=== PATIENT | female | born 1980 | race Caucasian/White ===

== ENCOUNTER 2018-09-23 17:43 | Observation (INO) | payer OTHER ==
[2018-09-23] MEDS ORDERED: ONDANSETRON ODT 4 MG TABLET TL STA (19:47)
[2018-09-23 20:05] LABS: BASOPHILS # (AUTO) 0.1 10^3/uL (0.0-0.1); BASOPHILS % (AUTO) 0.7 %; EOSINOPHILS # (AUTO) 0.1 10^3/uL (0.0-0.7); EOSINOPHILS % (AUTO) 0.8 %; HGB - HEMOGLOBIN 14.9 g/dL (12.0-16.0); LYMPHOCYTES # (AUTO) 2.2 10^3/uL (1.5-3.5); LYMPHOCYTES % (AUTO) 27.7 %; MEAN CORPUSCULAR HEMOGLOBIN 30.7 pg (27.0-31.0); MEAN CORPUSCULAR HGB CONC 32.9 g/dL (32.0-36.0); MEAN CORPUSCULAR VOLUME 93.5 fL (81.0-99.0); MEAN PLATELET VOLUME 7.4 fL (7.9-10.8); MONOCYTES # (AUTO) 0.5 10^3/uL (0.0-1.0); MONOCYTES % (AUTO) 6.1 %; NEUTROPHILS # (AUTO) 5.2 10^3/uL (1.5-6.6); NEUTROPHILS % (AUTO) 64.7 %; PLT - PLATELET COUNT 330 10^3/uL (130-450); RED BLOOD COUNT 4.85 10^6/uL (4.20-5.40); RED CELL DISTRIBUTION WIDTH 13.5 % (12.0-15.0); WHITE BLOOD COUNT 8.1 x10^3/uL (4.8-10.8)
[2018-09-23 20:19] LABS: ALBUMIN 4.5 g/dL (3.2-5.5); ALBUMIN/GLOBULIN RATIO 1.4 (1.0-2.2); BILIRUBIN,TOTAL 0.9 mg/dL (0.2-1.0); TOTAL PROTEIN 7.8 g/dL (6.7-8.2)
[2018-09-23 20:22] LABS: CALCIUM 9.4 mg/dL (8.5-10.3)
[2018-09-23] MEDS ORDERED: LIDOCAINE VISCOUS 2% 15 ML UDC MM STA (20:57)
[2018-09-23] MEDS ORDERED: MAG HYDROX/AL HYDROX/SIMETH 30 ML UDC PO STA (20:57)
[2018-09-23] MEDS ORDERED: SODIUM CHLORIDE 0.9% 1,000 ML IV ONE (20:57)
--- NOTE | 2018-09-23 21:00 | ED Physician Documentation ---
PD HPI ABD PAIN - Stated complaint Stated Complaint: HEADACHE,VOMITING - Chief complaint Chief Complaint: Abd Pain - History obtained from History obtained from: Patient - History of Present Illness Timing - onset: How many days ago (4) Timing - duration: Days (4) Timing - details: Gradual onset, Still present, Waxing and waning Quality: Cramping, Sharp, Pain Location: RUQ, Epigastric Improved by: Vomiting Worsened by: Eating, Moving, Position, Palpation Associated symptoms: Nausea, Vomiting, Diarrhea. No: Fever Similar symptoms before: Diagnosis (gastritis) Recently seen: Not recently seen - Additional information Additional information: 38-year-old female with a history of ADHD has developed abdominal pain vomiting and diarrhea about 4 days ago and she is having pain in the right upper quadrant. She has periodic sharp stabbing pains and she is not able to eat food without pain she is able to drink some water.She has a past history of a partial hysterectomy with a dania to the ureter and repair of that and a more recent hernia repair done in March of last year. Review of Systems Constitutional: denies: Fever, Chills Eyes: denies: Decreased vision Ears: denies: Ear pain Nose: denies: Rhinorrhea / runny nose, Congestion Throat: denies: Sore throat Cardiac: denies: Chest pain / pressure, Palpitations Respiratory: denies: Dyspnea, Cough GI: reports: Abdominal Pain, Nausea, Vomiting, Diarrhea : denies: Dysuria, Frequency Skin: denies: Rash Musculoskeletal: denies: Neck pain, Back pain, Extremity pain Neurologic: denies: Generalized weakness, Focal weakness, Numbness PD PAST MEDICAL HISTORY - Past Medical History Past Medical History: Yes Cardiovascular: None Respiratory: None Neuro: Headaches Endocrine/Autoimmune: Other GI: GERD, Ulcers HEENT: None Psych: Panic attacks, Post traumatic stress disorder Derm: None - Past Surgical History Past Surgical History: Yes Ortho: Rotator cuff repair, 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: Hysterectomy HEENT: Tonsil/Adenoidectomy - Present Medications Home Medications: Ambulatory Orders Medication Instructions Recorded Confirmed ALPRAZolam [Alprazolam] 1 mg PO 09/23/18 09/23/18 Dextroamphetamine/Amphetamine 09/23/18 [Adderall 20 mg Tablet] Topiramate [Topamax] 100 mg PO 09/23/18 - Allergies Allergies/Adverse Reactions: Allergies Allergy/AdvReac Type Severity Reaction Status Date / Time acetaminophen Allergy Hives Verified 09/23/18 17:57 [From Tylenol-Codeine] codeine Allergy Hives Verified 09/23/18 17:57 [From Tylenol-Codeine] NSAIDS (Non-Steroidal Allergy Hives Verified 09/23/18 17:57 Anti-Inflamma - Social History Does the pt smoke?: Yes Smoking Status: Current every day smoker Does the pt drink ETOH?: No Substance Use and Type: Marijuana - Immunizations Immunizations are current?: Yes - POLST Patient has POLST: No PD ED PE NORMAL - Vitals Vital signs reviewed: Yes (Tachycardic) - General General: Alert and oriented X 3, Well developed/nourished, Other (38-year-old female with tears in her eyes writhing in pain and periodically vomiting.) - HEENT HEENT: Atraumatic, PERRL, EOMI - Neck Neck: Supple, no meningeal sign, No bony TTP - Cardiac Cardiac: No murmur, Other (tachy to 100) - Respiratory Respiratory: No respiratory distress, Clear bilaterally - Abdomen Abdomen: Soft, Other (RUQ tenderness without gaurding epigastric tenderness ) - Back Back: No CVA TTP, No spinal TTP - Derm Derm: Normal color, Warm and dry, No rash - Extremities Extremities: No deformity, Normal ROM s pain, No edema, No calf tenderness / cord - Neuro Neuro: Alert and oriented X 3, semi driver 2-12 intact, No motor deficit, No sensory deficit, Normal speech Eye Opening: Spontaneous Motor: Obeys Commands Verbal: Oriented GCS Score: 15 - Psych Psych: Normal affect, Other (mood is defeated) Results - Vitals Vitals: Vital Signs - 24 hr 09/23/18 09/23/18 09/23/18 17:55 19:40 23:25 Temperature 36.6 C Heart Rate 110 H 78 64 Respiratory 20 16 16 Rate Blood Pressure 115/62 117/72 114/60 O2 Saturation 100 100 97 09/24/18 09/24/18 09/24/18 01:08 01:13 03:18 Temperature 36.6 C 36.2 C L Heart Rate 62 60 Respiratory 14 14 Rate Blood Pressure 91/41 L 86/40 L 89/56 L O2 Saturation 97 98 09/24/18 05:41 Temperature 36.4 C L Heart Rate 64 Respiratory 14 Rate Blood Pressure 89/59 L O2 Saturation 99 Oxygen O2 Source Room air - Labs Labs: Laboratory Tests 09/23/18 09/23/18 09/23/18 20:00 20:00 21:30 WBC 8.1 RBC 4.85 Hgb 14.9 Hct 45.4 MCV 93.5 MCH 30.7 MCHC 32.9 RDW 13.5 Plt Count 330 MPV 7.4 L Neut # (Auto) 5.2 Lymph # (Auto) 2.2 [place] # (Auto) 0.5 Eos # (Auto) 0.1 Baso # (Auto) 0.1 Absolute Nucleated RBC 0.00 Nucleated RBC % 0.0 Sodium 139 Potassium 3.9 Chloride 105 Carbon Dioxide 23 Anion Gap 11.0 BUN 13 Creatinine 1.0 Estimated GFR (MDRD) 62 L Glucose 96 Calcium 9.4 Total Bilirubin 0.9 AST 17 ALT 14 Alkaline Phosphatase 53 Total Protein 7.8 Albumin 4.5 Globulin 3.3 Albumin/Globulin Ratio 1.4 Lipase 29 Urine Color YELLOW Urine Clarity CLEAR Urine pH 6.0 Ur Specific [place] <=1.005 Urine Protein NEGATIVE Urine Glucose (UA) NEGATIVE Urine Ketones NEGATIVE Urine Occult Blood NEGATIVE Urine Nitrite NEGATIVE Urine Bilirubin NEGATIVE Urine Urobilinogen 0.2 (NORMAL) Ur Leukocyte Esterase NEGATIVE Ur Microscopic Review NOT INDICATED Urine Culture Comments NOT INDICATED - Rads (name of study) US RUQ Radiology: Prelim report reviewed (Impression: No evidence of cholelithiasis or biliary obstruction. Likely hemangiomas in the liver. No free fluid.), EMP read indepedently, See rad report Procedures - IVC sono (time) 2049 Bedside IVC sono: IVC measures (cm) (1.01), Dehydration (est 1 liter deficit) PD MEDICAL DECISION MAKING - ED course Complexity details: reviewed results, re-evaluated patient, considered differential, d/w patient, d/w healthcare network consultant ED course: 38-year-old female with persistent nausea vomiting and abdominal pain has normal-appearing diagnostics, did not respond to a GI cocktail and despite more than 12 hours in the emergency department she continues to have symptoms. She has a prior history of admissions for these symptoms and this morning I have sought admission for the patient after consulting the surgeon with a recommendation that she have an upper GI scoping with testing for H. pylori.This patient has persistence of symptoms and despite 14 hours in the department she continues to have pain nausea and vomiting. Departure - Departure Disposition: ED Place in Observation Clinical Impression: Vomiting Qualifiers: Vomiting type: cyclical vomiting Vomiting Intractability: intractable Nausea presence: with nausea Qualified Code(s): G43.A1 - Cyclical vomiting, intractable Abdominal pain Qualifiers: Abdominal location: epigastric Qualified Code(s): R10.13 - Epigastric pain Condition: Stable
[2018-09-23] MEDS ORDERED: HYDROmorphone 1 MG/ML CARPUJECT IVP STA ×2 (21:15→22:34)
[2018-09-23] MEDS ORDERED: ONDANSETRON 4 MG/2 ML VIAL IVP STA (21:15)
[2018-09-23] MEDS ORDERED: HYDROmorphone 1 MG/ML CARPUJECT ONE (22:44)
--- NOTE | 2018-09-23 23:26 | Ultrasound Report ---
Reason: RUQ pain Procedure Date: 09/23/2018 Accession Number: [id number] / [id number] Procedure: US - Abdomen Limited CPT Code: FULL RESULT: EXAM: ABDOMEN ULTRASOUND LIMITED, RUQ EXAM DATE: 09/23/2018 10:48 PM. CLINICAL HISTORY: RUQ pain. COMPARISON: None. TECHNIQUE: Real-time scanning was performed with static images obtained. FINDINGS: Liver: The liver demonstrates 3 echogenic nodules, likely representing hemangiomas, measuring up to 1.7 cm in diameter. The liver measures 14.8 cm. No intrahepatic biliary dilatation. Main portal vein flow: Hepatopetal. Gallbladder: Normal. No stones, wall thickening, or sonographic Clark's sign. Biliary System: CBD measures 6 mm. No intrahepatic or extrahepatic ductal dilatation. Other: None. IMPRESSION: No evidence of cholelithiasis or biliary obstruction. Likely hemangiomas in the liver. No free fluid. RADIA
[2018-09-23 23:33] LABS: BILIRUBIN,URINE NEGATIVE (NEGATIVE); GLUCOSE, URINE (UA) NEGATIVE (NEGATIVE); KETONES,URINE (UA) NEGATIVE (NEGATIVE); LEUKOCYTE ESTERASE, URINE NEGATIVE (NEGATIVE); NITRITE,URINE NEGATIVE (NEGATIVE); OCCULT BLOOD,URINE NEGATIVE (NEGATIVE); PROTEIN,URINE NEGATIVE (NEGATIVE); UROBILINOGEN,URINE 0.2 (NORMAL) E.U./dL (NORMAL)
[2018-09-23 23:35] LABS: CLARITY,URINE CLEAR (CLEAR)
[2018-09-23] MEDS ORDERED: IOVERSOL 320 100 ML VIAL IVP ONE (23:50)
[2018-09-24] MEDS ORDERED: IOVERSOL 320 100 ML VIAL IVP ONE (00:03)
[2018-09-24] MEDS ORDERED: HYDROmorphone 1 MG/ML CARPUJECT IVP STA ×2 (00:07→07:15)
[2018-09-24] MEDS ORDERED: PROMETHAZINE INJ 25 MG in SODIUM CHLORIDE 0.9% 50 ML IV STA (00:07)
--- NOTE | 2018-09-24 00:19 | CT Report ---
Reason: RUQ pain Procedure Date: 09/24/2018 Accession Number: [id number] / [id number] Procedure: CT - Abdomen/Pelvis W CPT Code: FULL RESULT: EXAM: CT ABDOMEN AND PELVIS EXAM DATE: 09/24/2018 12:07 AM. CLINICAL HISTORY: RUQ pain. COMPARISONS: None. TECHNIQUE: Routine helical CT imaging was performed through the abdomen and pelvis. IV contrast: 100 mL Optiray 320. Enteric contrast: No. Reconstructions: Coronal and sagittal. In accordance with CT protocol optimization, one or more of the following dose reduction techniques were utilized for this exam: automated exposure control, adjustment of mA and/or KV based on patient size, or use of iterative reconstructive technique. FINDINGS: Lung Bases: Unremarkable. Liver: Hepatic hypodensities, correlating with the hemangiomas identified on ultrasound. Gallbladder/Bile Ducts: Unremarkable. Spleen: Normal. Pancreas: Normal. Adrenal Glands: Normal. Kidneys: Normal. No masses or hydronephrosis. Peritoneal Cavity/Bowel: Normal. No free fluid, free air or adenopathy. No masses or acute inflammatory process. The appendix is well visualized and normal. Pelvic Organs: Normal. The bladder and visualized pelvic organs are within normal limits. Vasculature: No aneurysms or other significant abnormality. Bones: No significant abnormality. Other: None. IMPRESSION: Incidental hepatic hemangiomas. Otherwise, normal CT of the abdomen and pelvis with contrast. RADIA
[2018-09-24] MEDS ORDERED: ONDANSETRON 4 MG/2 ML VIAL IVP STA (07:15)
[2018-09-24] MEDS ORDERED: SODIUM CHLORIDE 0.9% 1,000 ML IV ONE (07:15)
[2018-09-24] MEDS ORDERED: D5NS W/20 MEQ KCL 1,000 ML IV SCH ×2 (09:00→14:00)
[2018-09-24] MEDS ORDERED: FAMOTIDINE 20 MG/2 ML VIAL IVP SCH (09:00)
[2018-09-24] MEDS ORDERED: PROCHLORPERAZINE 10 MG/2 ML VIAL IVP PRN (09:20)
[2018-09-24] MEDS ORDERED: LORazepam 2 MG/ML VIAL IVP PRN (09:30)
[2018-09-24 10:46] LABS: BASOPHILS % (AUTO) 0.5 %; EOSINOPHILS # (AUTO) 0.1 10^3/uL (0.0-0.7); EOSINOPHILS % (AUTO) 1.3 %; LYMPHOCYTES # (AUTO) 2.5 10^3/uL (1.5-3.5); LYMPHOCYTES % (AUTO) 31.9 %; MEAN CORPUSCULAR HEMOGLOBIN 30.3 pg (27.0-31.0); MEAN CORPUSCULAR HGB CONC 31.4 g/dL (32.0-36.0); MEAN CORPUSCULAR VOLUME 96.5 fL (81.0-99.0); MEAN PLATELET VOLUME 9.7 fL (7.9-10.8); MONOCYTES # (AUTO) 0.6 10^3/uL (0.0-1.0); MONOCYTES % (AUTO) 7.5 %; NEUTROPHILS # (AUTO) 4.5 10^3/uL (1.5-6.6); NEUTROPHILS % (AUTO) 58.3 %; PLT - PLATELET COUNT 249 10^3/uL (130-450); RED BLOOD COUNT 4.29 10^6/uL (4.20-5.40); RED CELL DISTRIBUTION WIDTH 12.8 % (12.0-15.0); WHITE BLOOD COUNT 7.7 x10^3/uL (4.8-10.8)
[2018-09-24] MEDS: ONDANSETRON 4 MG/2 ML VIAL IVP PRN ×2 (10:46→17:26)
[2018-09-24] MEDS: SODIUM CHLORIDE FLUSH 0.9% 10 ML SYRINGE IVP SCH ×2 (10:47→17:26)
[2018-09-24 10:58] LABS: CALCIUM 8.2 mg/dL (8.5-10.3); CREATININE 0.9 mg/dL (0.4-1.0); MAGNESIUM 2.5 mg/dL (1.7-2.8)
[2018-09-24] MEDS: SODIUM CHLORIDE FLUSH 0.9% 10 ML SYRINGE IVP PRN ×2 (11:02→11:23)
[2018-09-24] MEDS ORDERED: METOCLOPRAMIDE 10 MG/2 ML VIAL IVP SCH (12:00)
[2018-09-24] MEDS ORDERED: HYDROmorphone 2 MG/ML VIAL IVP PRN (13:52)
--- NOTE | 2018-09-24 14:20 | ANESTHESIA ---
Pre-Anesthesia VS, & Labs - Diagnosis abdominal pain - Procedure egd Vital Signs: Temp Pulse Resp BP Pulse Ox 36.5 C 68 18 99/67 100 09/24/18 09:10 09/24/18 09:10 09/24/18 09:10 09/24/18 09:10 09/24/18 09:10 Height 5 ft 4 in Weight (kg) 72.121 kg Body Mass Index 27.3 - NPO >8 hours - Is Patient ?: Not Applicable - Lab Results Current Lab Results: Laboratory Tests 09/24/18 10:34: Sodium 141, Potassium 3.7, Chloride 113 H, Carbon Dioxide 21, Anion Gap 7.0, BUN 12, Creatinine 0.9, Estimated GFR (MDRD) 70 L, Glucose 87, Calcium 8.2 L, Magnesium 2.5 09/24/18 10:30: WBC 7.7, RBC 4.29, Hgb 13.0, Hct 41.4, MCV 96.5, MCH 30.3, MCHC 31.4 L, RDW 12.8, Plt Count 249, MPV 9.7, Neut # (Auto) 4.5, Lymph # (Auto) 2.5, [place] # (Auto) 0.6, Eos # (Auto) 0.1, Baso # (Auto) 0.0, Absolute Nucleated RBC 0.00, Nucleated RBC % 0.0 09/23/18 20:00: Sodium 139, Potassium 3.9, Chloride 105, Carbon Dioxide 23, Anion Gap 11.0, BUN 13, Creatinine 1.0, Estimated GFR (MDRD) 62 L, Glucose 96, Calcium 9.4, Total Bilirubin 0.9, AST 17, ALT 14, Alkaline Phosphatase 53, Total Protein 7.8, Albumin 4.5, Globulin 3.3, Albumin/Globulin Ratio 1.4, Lipase 29 09/23/18 20:00: WBC 8.1, RBC 4.85, Hgb 14.9, Hct 45.4, MCV 93.5, MCH 30.7, MCHC 32.9, RDW 13.5, Plt Count 330, MPV 7.4 L, Neut # (Auto) 5.2, Lymph # (Auto) 2.2, [place] # (Auto) 0.5, Eos # (Auto) 0.1, Baso # (Auto) 0.1, Absolute Nucleated RBC 0.00, Nucleated RBC % 0.0 Fish Bones: 09/24/18 10:30 09/24/18 10:34 Home Medications and Allergies Home Medications: Ambulatory Orders ALPRAZolam [Alprazolam] 1 mg PO 09/23/18 Dextroamphetamine/Amphetamine [Adderall 20 mg Tablet] 09/23/18 Topiramate [Topamax] 100 mg PO 09/23/18 Active Medications Famotidine (Pepcid) 20 mg IVP BID [facility] Last Admin: 09/24/18 10:46 Dose: 20 mg Hydromorphone HCl (Dilaudid (Vial)) 2 mg IVP Q2H PRN PRN Reason: PAIN Potassium Chloride/Dextrose/Sod Cl () 1,000 mls @ 100 mls/hr IV .Q10H [facility] Lorazepam (Ativan Inj (Vial)) 0.5 mg IVP Q4H PRN PRN Reason: Anxiety Last Admin: 09/24/18 11:23 Dose: 0.5 mg Metoclopramide HCl (Reglan Inj) 5 mg IVP Q6HR [facility] Ondansetron HCl (Zofran Inj) 4 mg IVP Q6HR PRN PRN Reason: Nausea / Vomiting Last Admin: 09/24/18 10:46 Dose: 4 mg Prochlorperazine Edisylate (Compazine Inj) 10 mg IVP Q6HR PRN PRN Reason: Nausea / Vomiting Sodium Chloride (Normal Saline Flush 0.9%) 10 ml IVP PRN PRN PRN Reason: NEEDED PER PROVIDER ORDERS Last Admin: 09/24/18 11:23 Dose: 10 ml Sodium Chloride (Normal Saline Flush 0.9%) 10 ml IVP 0100,0900,1700 [facility] Last Admin: 09/24/18 10:47 Dose: 10 ml ALPRAZolam [Alprazolam] 1 mg PO 09/23/18 Dextroamphetamine/Amphetamine [Adderall 20 mg Tablet] 09/23/18 Topiramate [Topamax] 100 mg PO 09/23/18 Allergies/Adverse Reactions: Allergies Allergy/AdvReac Type Severity Reaction Status Date / Time acetaminophen Allergy Hives Verified 09/23/18 17:57 [From Tylenol-Codeine] codeine Allergy Hives Verified 09/23/18 17:57 [From Tylenol-Codeine] NSAIDS (Non-Steroidal Allergy Hives Verified 09/23/18 17:57 Anti-Inflamma Anes History & Medical History - Anesthetic History Anesthesia Complications: reports: No previous complications Family history of Anesthesia Complications: Denies Family history of Malignant Hyperthermia: Denies - Medical History Cardiovascular: reports: None Pulmonary: reports: None Gastrointestinal: reports: GERD, Ulcers Neuro: reports: Head injury, Headaches Musculoskeletal: reports: None Endocrine/Autoimmune: reports: Other Skin: reports: None Smoking Status: Current every day smoker - Surgical History General: Hiatal hernia repair Eyes Ears Nose Throat (EENT): Tonsil/Adenoidectomy Gynecologic: Hysterectomy Orthopedic: Rotator cuff repair, Shoulder arthroplasty Exam General: Alert, Oriented x3, Cooperative, No acute distress Dental: Other (caps) Mouth Openin Fingerbreadth Neck Mobility: Normal Mallampati classification: I Respiratory: Lungs clear, Normal breath sounds, No respiratory distress, No accessory muscle use Cardiovascular: Regular rate, Normal S1, Normal S2, No murmurs Plan Anesthesia Type: MAC Consent for Procedure(s) Verified and Reviewed: Yes Code Status: Attempt Resuscitation ASA classification: 2-Mild systemic disease Is this case an emergency?: No
--- NOTE | 2018-09-24 14:28 | CONSULTATION NOTE ---
Referring Provider Name of Referring Provider:: Dr. Barker Consult Date: 09/24/18 Chief Complaint - Chief Complaint Chief Complaint: abd pain History of Present Illness - Admitted From Admitted From:: ER - History Obtained From Records Reviewed: yes History obtained from: pt Exam Limitations: pt in pain, anxious, emotional - History of Present Illness HPI Comment/Other: 38 yo female with 2 day hx of sudden onset of constant steady RUQ pain associated with recurrent nonbloody N/V leading to evaluation in the ER last night and admission today. No associated fever/chills, change in bowel habits, recent wt loss, food intolerances except lactose. No associated respiratory or urinary sx. Previous similar sx last year while living in the [place] with sim kortney w/u including HIDA scan which also was neg and an EGD reportedly showing PUD, for which she has been taking omeprazole daily since. She denies hx H. Pylori infection, use of NSAIDs, or alcohol. She reports chronically irregular bm's with alternating diarrhea and constipation, but no melena or BRBPR and no prior lower gi evaluations. She does use tobacco and marijuana daily. Sx failed to respond to analgesics and antiemetics in the ER. ER evaluation included CBC, CMP, lipase, UA, abd US, abd/pelvic CT all of which were negative. Neg FH GI tumors. No hx fatty food intolerance, hepatitis or jaundice. Surgical consultation was requested. 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 - Substance History Use: Uses substance without health or social issues: Tobacco, Cannabis - POLST Patient has POLST: No Meds/Allgy - Home Medications Home Medications: Ambulatory Orders Medication Instructions Recorded Confirmed ALPRAZolam [Alprazolam] 1 mg PO 09/23/18 09/23/18 Dextroamphetamine/Amphetamine 09/23/18 [Adderall 20 mg Tablet] Topiramate [Topamax] 100 mg PO 09/23/18 - Allergies Allergies/Adverse Reactions: Allergies Allergy/AdvReac Type Severity Reaction Status Date / Time acetaminophen Allergy Hives Verified 09/23/18 17:57 [From Tylenol-Codeine] codeine Allergy Hives Verified 09/23/18 17:57 [From Tylenol-Codeine] NSAIDS (Non-Steroidal Allergy Hives Verified 09/23/18 17:57 Anti-Inflamma Review of Systems - Constitutional Constitutional: reports: Weight gain (15 #/2 months). denies: Fever, Chills, Weight loss - Gastrointestinal Gastrointestinal: reports: Abdominal pain, Constipation, Diarrhea (she reports chronic intermittent constipation and diarrhea x years), Nausea, Vomiting. denies: Antoine blood emesis, Coffee grounds emesis - Genitourinary Genitourinary: denies: Dysuria - Psychiatric Psychiatric: reports: Anxiety - Hematologic/Lymphatic Hematologic/Lymphatic: denies: Anemia, Blood clots, Bleeding tendencies - All Other Systems All Other Systems: reports: Reviewed and negative Exam - Vital Signs Reviewed Vital Signs: Yes Vital Signs: Vital Signs x48h Temp Pulse Resp BP Pulse Ox 09/24/18 09:10 36.5 C 68 18 99/67 100 - Physical Exam General Appearance: positive: Alert, Moderate distress, Anxious Eyes Bilateral: positive: Normal inspection, PERRL, EOMI, Conjunctivae nml, No scleral icterus ENT: positive: ENT inspection nml, Pharynx nml, No signs of dehydration Neck: positive: Nml inspection, No JVD. negative: Lymphadenopathy (R), Lymphadenopathy (L) Respiratory: positive: Chest non-tender, No respiratory distress, Breath sounds nml. negative: Wheezes, Rales, Rhonchi Cardiovascular: positive: Regular rate & rhythm, No murmur, No gallop Abdomen: positive: Non-tender, No organomegaly, Nml bowel sounds, No distention. negative: Hepatomegaly, Splenomegaly, Mass Back: positive: Nml inspection Skin: positive: Color nml, No rash, Warm, Dry. negative: Cyanosis Extremities: positive: No pedal edema. negative: Calf tenderness Neurologic/Psychiatric: positive: Oriented x3 Conclusion/Plan - Diagnosis Diagnosis: RUQ pain, N,V of unclear etiology; ddx includes PUD, gastritis, atypical GERD, ugi neoplasm, h. pylori; biliary dyskinesia/chronic acalculous cholecystitis, IBS, doubt IBD - Plan Plan: EGD today. PAR conference. If neg would repeat a HIDA scan with GB EF. If neg, then suspect IBS as etiology, or possible cyclical N/V associated with marijuana use. Thanks, - Lab Results Fish Bones: 09/24/18 10:30 09/24/18 10:34
[2018-09-24] MEDS ORDERED: MIDAZOLAM 2 MG/2 ML VIAL IVP ONE (14:30)
[2018-09-24] MEDS ORDERED: fentaNYL 100 MCG/2 ML VIAL IVP ONE (14:30)
[2018-09-24] MEDS ORDERED: LIDO GARGLE 30 ML BOTTLE ONE (14:33)
[2018-09-24] MEDS ORDERED: LIDO GARGLE 30 ML BOTTLE PO ONE (14:42)
[2018-09-24] MEDS ORDERED: LACTATED RINGERS 1,000 ML IV ONE (14:44)
[2018-09-24] MEDS ORDERED: SINCALIDE 5 MCG VIAL ONE (15:18)
--- NOTE | 2018-09-24 18:04 | Discharge Plan ---
Discharge Plan Disposition: 01 Home, Self Care Condition: Poor Prescriptions: Ondansetron Odt [Zofran] 4 mg TL Q6H PRN #15 PRN Reason: Nausea / Vomiting Diet: Soft (Advance your diet from clear liquids as tolerated. Stay hydrated.) Activity Restrictions: Activity as Tolerated Instruction Topics: Nausea Vomit Control, Vomit Diarrhea Self Care, Cyclic Vomiting Syndrome [facility] Health Concerns: Concern for dehydration if you are having uncontrolled vomiting. Concern that marijuana use is just adding to the cyclical vomiting. Additional Instructions or Follow Up instructions: You are in Observation status to evaluate the abdominal pain, nausea and vomiting and treat your symptoms and give you hydration. The upper endoscopy showed no signs of active ulcer or any gastritis. You did not want to undergo a (repeat) gallbladder scan, so it was cancelled. You may resume all your usual oral medications, when you can tolerate them. A new prescription for Zofran trans-lingual was ordered for you to use if needed. Please follow-up with your PCP or assurance associate for further management. No Smoking: If you smoke, Please STOP! Call for help.
--- NOTE | 2018-09-24 18:08 | HISTORY & PHYSICAL EXAMINATION ---
DATE OF SERVICE: 09/24/2018 Physician: Angelica Cherry MD HISTORY OF PRESENT ILLNESS: This is a 38-year-old white female with a history of anxiety, and undiagnosed GI complaints (constipation alternating with diarrhea, cyclical vomiting, dilated gallbladder without acute cholecystitis, history of gastric ulcer 1 year ago, repeat admissions every few months for vomiting and abdominal pain). The patient was last worked up at the [facility]. She just moved to [facility] 1 month ago. Patient started having her typical nausea, vomiting, could keep no food down for 3 days and finally came to the ER last night. She was started on IV fluids, given iv narcotic pain medications and iv antiemetics. These helped briefly then her symptoms would recur and she is being placed in observation for management of intractable nausea, vomiting and for further evaluation of her abdominal pain. PAST MEDICAL HISTORY: According to the [facility], she has irritable bowel syndrome, but the patient denies this. Anxiety with panic attacks, PTSD, gastric ulcer 1 year ago documented by EGD and history of headaches. MEDICATIONS 1. Alprazolam 1 mg p.o., unknown frequency. 2. Adderall 20 mg, unknown frequency, and unknown if this is current 3. Lamictal for her anxiety (not seizures). (The list is possibly incomplete; not reconciled by Pharmacy yet) ALLERGIES 1. TYLENOL. 2. CODEINE. FAMILY HISTORY: NSAIDS ALL GIVE HER HIVES. SOCIAL HISTORY: The patient smokes between 1/4 to 1 full pack a day. The patient smokes marijuana daily only over the last 1 month. When asked if she noticed that her nausea and vomiting were worse after marijuana, she stated that all these symptoms had started before marijuana use. Alcohol use, none. REVIEW OF SYSTEMS: Patient is 80% service connected and goes to the [facility]. There has been no fever, no recent diarrhea, no hematochezia. A comprehensive review of systems was performed and the pertinent positives are listed, the rest are negative. PHYSICAL EXAMINATION GENERAL: White female who is tearful, eyes are puffy. She is currently in no distress. VITAL SIGNS: Blood pressure 90/60, heart rate 60-70 in sinus rhythm, afebrile, room air saturation 99%. HEENT: Reveals the above description. Oral mucosa is moist. NECK: Without JVD and is supple. LUNGS: Clear. HEART: Heart sounds normal. ABDOMEN: Soft and nontender to light palpation. No organomegaly. EXTREMITIES: No clubbing, cyanosis or edema. NEUROLOGIC: Grossly intact. LABORATORY LABORATORIES: Normal electrolytes. Normal BUN and creatinine, magnesium, liver tests and lipase. CBC within normal limits. Urinalysis unremarkable. IMAGING: Abdomen and pelvis CT and abdominal ultrasound were done in the ER. These were only remarkable for hepatic hemangiomas, no evidence of cholelithiasis or biliary obstruction and no free fluid. There is common bile duct dilatation. ASSESSMENT 1. Intractable nausea and vomiting. 2. Abdominal pain. 3. Dilated bile duct. 4. Marijuana use. 5. Tobacco use. 6. History of posttraumatic stress disorder 7. History of anxiety PLAN: Place the patient in Observation status. Continue with n.p.o. status for bowel rest and also in preparation for GI imaging and upper endoscopy. IV fluids will be continued while she is n.p.o. Recheck her electrolytes and CBC since these were done over 12 hours ago. Consult for EGD with general surgery. Recommendation for stopping smoking as well as marijuana was discussed with the patient. She appears to be not interested in either of these, as she especially noted that the marijuana use began after her symptoms had already become cyclical in nature. DEEP VENOUS THROMBOSIS PROPHYLAXIS: SCDs. CODE STATUS: FULL CODE. ATTESTATION: The patient is expected to be discharged or transferred to another facility within 96 hours: Yes. TD: 09/24/2018 17:54 MTDD
[2018-09-24 19:05] VITALS: BP 105/54
--- NOTE | 2018-09-27 18:53 | DISCHARGE SUMMARY ---
"Discharge Summary Admit Date: 09/24/18 Discharge Date: 09/24/18 Discharging Provider: Dr Angelica Cherry Primary Care Provider: [facility] MD Code Status: Attempt Resuscitation Condition at Discharge: Poor Discharge Disposition: 01 Home, Self Care - DIAGNOSES Admission Diagnoses: 1) Cyclical nausea and vomiting 2) Marijuana use 3) History of recurrent abdominal pain, nausea and vomiting, etiology unknown 4) Peptic ulcer disease 1 year ago 5) Anxiety disorder Discharge Diagnoses with Status of Each Condition: 1) Intractable nausea and vomiting. The patient was first managed in the ER overnight with IV fluids, and antiemetics but had continued cyclical retching and vomiting. She was placed in Observation status on 09/24/18 for further management with IV fluids, IV antiemetics and further work-up with consultation from surgery and to perform an EGD. There was also plan to have a HIDA scan done. Patient first agreed then refused a HIDA scan. She did undergo the EGD which was within normal limits, no gastritis or ulcers were seen, biopsies were taken. Patient was started on clear liquids. She requested to be sent home with her diet advanced as she tolerated. She was prescribed sublingual Zofran p.r.n. nausea. 2) Abdominal pain. The etiology of this was not entirely established. 3) Dilated bile duct. Apparently this is a chronic problem, and she reports having had HIDA scans in the past that were normal. She did not undergo repeat testing for this while here, as she refused a HIDA scan. 4) Marijuana use. Patient was informed that marijuana use is often associated with cyclical vomiting. She stated that her cyclical vomiting started before her current 1 month of marijuana use and she did not plan on stopping. 5) Tobacco use. The patient reports smoking between a quarter pack and full pack a day. She declined a nicotine patch that was all offered. 6) History of posttraumatic stress disorder. Patient had none of her psychiatric meds while here because of her n.p.o. status. She was advised to restart this when she was no longer vomiting. 7) History of anxiety. Seen plan as a #6. - HPI History of Present Illness: This is a 38-year-old white female with a [facility]. The patient however denies that the irritable bowel syndrome has been confirmed. She just moved to [facility] 1 month ago. She has a history of cyclical vomiting and abdominal pain, reports having an endoscopy that showed an ulcer one year ago. The vomiting reccurred again and she could not control it at home, no food or fluids stay down for 3 days. In the ER she was treated with iv fluids, pain meds and enti-emetics. Imaging showed a dilated common bile duct. There were no gallstones or obstruction. Liver hemangiomas were seen. - CONSULTS | PROCEDURES Consultations: General Surgery, Dr Walt Acuña Procedures: EGD - HOSPITAL COURSE Hospital Course: See above - ALLERGIES Allergies/Adverse Reactions: Allergies Allergy/AdvReac Type Severity Reaction Status Date / Time acetaminophen Allergy Hives Verified 09/23/18 17:57 [From Tylenol-Codeine] codeine Allergy Hives Verified 09/23/18 17:57 [From Tylenol-Codeine] NSAIDS (Non-Steroidal Allergy Hives Verified 09/23/18 17:57 Anti-Inflamma - MEDICATIONS Home Medications: Ambulatory Orders Medication Instructions Recorded Confirmed ALPRAZolam [Alprazolam] 1.5 mg PO DAILY PRN 09/23/18 09/24/18 Dextroamphetamine/Amphetamine 20 mg PO DAILY 09/23/18 09/24/18 [Adderall 20 mg Tablet] Ondansetron Odt [Zofran] 4 mg TL Q6H PRN #15 09/24/18 Topiramate [Topiramate ER] 150 mg PO DAILY 09/24/18 09/24/18 - PHYSICAL EXAM AT DISCHARGE General Appearance: positive: Mild distress Eyes Bilateral: positive: EOMI, Other (Swollen lids (from crying)) ENT: positive: ENT inspection nml Neck: positive: Nml inspection, No JVD Respiratory: positive: No respiratory distress, Breath sounds nml Cardiovascular: positive: Regular rate & rhythm, No murmur Abdomen: positive: Non-tender, No organomegaly, Other (Diminished bowel sounds) Extremities: positive: Non-tender, No pedal edema - LABS Result Diagrams: 09/24/18 10:30 09/24/18 10:34 - DIAGNOSTIC IMAGING Diagnostic Imaging Results: Final report reviewed - FOLLOW UP Follow Up: See [facility] and/or [facility] in follow-up - TIME SPENT Time Spent in Discharge (Minutes): 35"
== END 2018-09-24 18:30 | disposition home or self-care (01) ==
LOC: ED 17:43 → MS2 09-24 08:17
PROVIDERS: ADMIT Internal Medicine; ATTEND Internal Medicine
PROC: 0DB58ZX Excision of Esophagus, Via Natural or Artificial Opening Endoscopic, Diagnostic (ICD-10-PCS; principal; 2018-09-23)
PROC: 0DB78ZX Excision of Stomach, Pylorus, Via Natural or Artificial Opening Endoscopic, Diagnostic (ICD-10-PCS; 2018-09-23)
DX: G43.A1 Cyclical vomiting, in migraine, intractable (principal); R10.11 Right upper quadrant pain; K83.9 Disease of biliary tract, unspecified; F17.210 Nicotine dependence, cigarettes, uncomplicated; F43.10 Post-traumatic stress disorder, unspecified; K59.00 Constipation, unspecified; K29.50 Unspecified chronic gastritis without bleeding; K44.9 Diaphragmatic hernia without obstruction or gangrene; K22.10 Ulcer of esophagus without bleeding; E86.0 Dehydration; F41.9 Anxiety disorder, unspecified
CPT/HCPCS: 36415; 43239; 74177; 76705; 80048; 80053; 81003; 83690; 83735; 85025; 96361; 96365; 96375; 96376; 99284; 99285; A9270; G0378; J1170; J2060; J7040; J7120; Q0162; Q9967; 81001; 87086

== ENCOUNTER 2018-11-05 14:30 | Emergency (ER) | payer OTHER ==
--- NOTE | 2018-11-05 14:36 | ED Physician Documentation ---
PD HPI UPPER EXT INJURY - Stated complaint Stated Complaint: RT HAND INJ - History obtained from History obtained from: Patient - History of Present Illness Location: Right, Elbow, Wrist Type of injury: Fall (She states she is fell from a small step ladder and landed onto her right hand and elbow. She had had a recent fracture of the right ulnar styloid and distal ulna that had only been found on an MRI and was splinted and casted. This was 8 months ago and had been still having pains in the area with the use. She had been able to have fairly reasonable every day use of the hand though. She states that hurting like it did when she broke it. She is also having some numbness in her little finger. She complains of pain in the elbow as well.) Where injury occurred: Home Timing - onset: Today Timing - details: Abrupt onset, Still present Worsened by: Moving, Palpating Associated symptoms: Numbness (Some numbness in the little and ring finger since the fall.). No: Weakness Contributing factors: No: Anticoagulated, Prior ortho surgery (She did not have surgery on her wrist but did have a cast in place with a occult fracture 8 months ago.) Recently seen: Not recently seen, Other ([place] and would be just the past couple of months.) Review of Systems Skin: denies: Abrasion (s), Laceration (s) Musculoskeletal: reports: Joint pain (She is hurting at both the right wrist and the right elbow on the ulnar side.) Neurologic: reports: Numbness. denies: Generalized weakness, Focal weakness, Head injury PD PAST MEDICAL HISTORY - Past Medical History Cardiovascular: None Respiratory: None Neuro: Head injury, Headaches Endocrine/Autoimmune: Other GI: GERD, Ulcers HEENT: None Psych: Anxiety, Panic attacks, Post traumatic stress disorder Musculoskeletal: None Derm: None - Past Surgical History Past Surgical History: Yes General: Other (ventral hernia repair) Ortho: Rotator cuff repair, Shoulder arthroplasty /[employer]: Hysterectomy (complicated by ureteral injury requiring repair and nephrostomy tube), Other (multiple laparoscopies for ovarian cysts) HEENT: Tonsil/Adenoidectomy - Present Medications Home Medications: Ambulatory Orders Medication Instructions Recorded Confirmed ALPRAZolam [Alprazolam] 1.5 mg PO DAILY PRN 09/23/18 09/24/18 Dextroamphetamine/Amphetamine 20 mg PO DAILY 09/23/18 09/24/18 [Adderall 20 mg Tablet] Ondansetron Odt [Zofran] 4 mg TL Q6H PRN #15 09/24/18 Topiramate [Topiramate ER] 150 mg PO DAILY 09/24/18 09/24/18 Hydrocodone/Acetaminophen [Galliano 1 each PO Q6H PRN #15 tablet 11/05/18 5-325 Tablet] - Allergies Allergies/Adverse Reactions: Allergies Allergy/AdvReac Type Severity Reaction Status Date / Time acetaminophen Allergy Hives Verified 11/05/18 14:34 [From Tylenol-Codeine] codeine Allergy Hives Verified 11/05/18 14:34 [From Tylenol-Codeine] NSAIDS (Non-Steroidal Allergy Hives Verified 11/05/18 14:34 Anti-Inflamma - Social History Does the pt smoke?: Yes Smoking Status: Current every day smoker Does the pt drink ETOH?: No - Immunizations Immunizations are current?: Yes - POLST Patient has POLST: No PD ED PE NORMAL - Vitals Vital signs reviewed: Yes - General General: Alert and oriented X 3, Well developed/nourished - HEENT HEENT: Atraumatic - Neck Neck: No bony TTP - Derm Derm: Normal color, Warm and dry - Extremities Extremities: Other (She does appear uncomfortable and is holding the right wrist and elbow guardedly. She is tearful with attempted range of motion at the wrist. She is tearful with light palpation at the wrist. There is no obvious deformity. She is also tender at the ulnar side of the elbow without any obvious deformity nor effusion.) - Neuro Neuro: Alert and oriented X 3, No motor deficit, Normal speech Results - Vitals Vitals: Vital Signs - 24 hr 11/05/18 14:34 Temperature 36.6 C Heart Rate 103 H Respiratory 18 Rate Blood Pressure 139/96 H O2 Saturation 100 Oxygen O2 Source Room air - Rads (name of study) right wrist Radiology: Prelim report reviewed (no fracture), See rad report right elbow Radiology: Prelim report reviewed (no fracture), See rad report PD MEDICAL DECISION MAKING - ED course Complexity details: reviewed results, considered differential (She is having tenderness at the wrist and elbow with normal x-rays. She is concerned about occult fracture as she had had in the past. I think the chance of that is small though not impossible but will be treated with splinting and immobilization. We will do that for sprain as well and so therefore she is given a wrist splint and a sling. I will prescribe her pain medication. She is allergic to NSAIDs so she would need to use some Tylenol for mild pain. She is referred to orthopedics [facility] She will get prompt her follow-up through orthopedics here in [facility].), d/w patient Departure - Departure Disposition: Home, Self Care Clinical Impression: Accidental fall Qualifiers: Encounter type: initial encounter Qualified Code(s): W19.XXXA - Unspecified fall, initial encounter Right wrist sprain Qualifiers: Encounter type: initial encounter Qualified Code(s): S63.501A - Unspecified sprain of right wrist, initial encounter Contusion of right elbow Qualifiers: Encounter type: initial encounter Qualified Code(s): S50.01XA - Contusion of right elbow, initial encounter Condition: Stable Record reviewed to determine appropriate education?: Yes Instructions: ED Sprain Wrist Follow-Up: Juan Santana MD [Provider Admit Priv/Credential] - Prescriptions: Hydrocodone/Acetaminophen [Galliano 5-325 Tablet] 1 each PO Q6H PRN #15 tablet PRN Reason: Pain Comments: The x-rays did not show any fractures at the wrist or elbow. Presume its a sprain and contusion. Use Nitish wrap and sling to help reduce motion and for swelling. Elevate and ice the wrist often. He can follow-up with orthopedics locally or at the [place]. He is Tylenol or hydrocodone if needed for pains.
[2018-11-05] MEDS ORDERED: HYDROcod/ACETAM 5/325 MG TABLET PO STA (14:46)
--- NOTE | 2018-11-05 15:18 | XRAY Report ---
Reason: fall from ladder Procedure Date: 11/05/2018 Accession Number: [id number] / [id number] Procedure: XR - Elbow 3 View RT CPT Code: FULL RESULT: EXAM: RIGHT ELBOW RADIOGRAPHY EXAM DATE: 11/05/2018 03:07 PM. CLINICAL HISTORY: Fall from ladder. COMPARISON: None. TECHNIQUE: 3 views. FINDINGS: Bones: Normal. No fractures or bone lesions. Joints: Normal. No effusion. No subluxation. Soft Tissues: Normal. No soft tissue swelling. IMPRESSION: No acute fracture or dislocation. RADIA
--- NOTE | 2018-11-05 15:24 | XRAY Report ---
Reason: fall from ladder Procedure Date: 11/05/2018 Accession Number: [id number] / [id number] Procedure: XR - Wrist 3 View RT CPT Code: FULL RESULT: EXAM: RIGHT WRIST RADIOGRAPHY EXAM DATE: 11/05/2018 03:08 PM. CLINICAL HISTORY: Fall, pain. COMPARISON: None. TECHNIQUE: 3 views. FINDINGS: Bones: Normal. No fractures or bone lesions. Joints: Normal. No subluxations. Soft Tissues: Unremarkable. IMPRESSION: Normal wrist radiography. RADIA
[2018-11-05 16:23] VITALS: BP 145/74
== END 2018-11-05 16:13 | disposition home or self-care (01) ==
LOC: ED 14:30
DX: S63.501A Unspecified sprain of right wrist, initial encounter (principal); S50.01XA Contusion of right elbow, initial encounter; W11.XXXA Fall on and from ladder, initial encounter; Y92.009 Unspecified place in unspecified non-institutional (private) residence as the place of occurrence of the external cause; F17.200 Nicotine dependence, unspecified, uncomplicated
CPT/HCPCS: 73080; 73110; 99284; A9270